=== PATIENT | male | born 1965 | race Caucasian/White ===

== ENCOUNTER 2020-11-21 19:02 | Inpatient (IN) | payer OTHER ==
[~2020-11-21] VITALS: Ht 172.7 cm; Wt 113.9 kg
--- NOTE | ~2020-11-21 | O ---
[facility] [place] [address] OPERATIVE REPORT Name: LULU CONNER Room #: 441-P ADM IN M.R.#: [id number] Admission: 11/21/20 Attend Phys: Madan Louie MD Discharge: Date of : 63 Report #: [id number] THIS REPORT FOR: cc: FAM - No family physician/PCP FAM - No family physician/PCP Hammad Andre DPM ~ LOCATION: [place]. PREOPERATIVE DIAGNOSIS: Left foot diabetic foot ulcer. POSTOPERATIVE DIAGNOSIS: Left foot diabetic foot ulcer. PROCEDURE: Left foot I and D, 5.5 cm subcutaneous and deep fascia, excisional. ANESTHESIA: General with a local block consisting of 15 mL of 0.5% ropivacaine. TOURNIQUET: None. DESCRIPTION OF PROCEDURE: The patient was transferred to the operating room and placed on the operating table in a supine position. General anesthesia was administered. Left lower extremity was prepped and draped in the usual sterile manner. Attention was directed to the left foot where an incision was made along the second interspace, carried out about 5 cm proximally and also distally just underneath the interspace. It was widened and purulence was noted right away. Culture was taken, aerobic and fungal. Then, a rongeur was used to remove any compromised tissue and any other appearing necrotic tissue to good bleeding tissue. There was some slight tracking more proximal and plantar. This was washed out and then dressed with Adaptic, fluffs, Kerlix and outer Sarkis bandage. The patient tolerated the procedure well and left the operating room in stable condition with vascular status intact. The patient will go home on my opinion tomorrow. I will consult Dr. Smith and Dr. Olmos for wound care and followup. The patient can walk with a postop shoe. By: [id number] Hammad Andre, DARLIN /nt
[~2020-11-21 19:02] MED LIST: AMOX TR-K250 MG/5 M; CATAPRES-TTS 10.1 M1 TD; CATAPRES-TTS 10.1 MG TD; DIABETA 2.5MG2.5 MG PO; GEMFIBROZIL 60600 MG PO; GLYBURIDE 2.52.5 M1 GT; HYDROCODONE BI473 ML PO; INDOMETHACIN 2525 MG PO; LISINOPRIL40 MG PO; NORCO 5-325 TA1 EACH PO; TAMSULOSIN HCL0.4 M1 PER TUBE
[2020-11-21 19:18] VITALS: BP 186/98
[2020-11-21 19:42] LABS: ABSOLUTE NEUTROPHILS 7.6 thou/uL (1.4-8.2); BASOPHILS 0.6 % (0.0-2.0); EOSINOPHILS 0.7 % (0.0-3.0); HEMATOCRIT 44.8 % (42.0-52.0); HEMOGLOBIN 15.5 gm/dL (14.0-18.0); LYMPHOCYTES 15.4 % (24.0-44.0); MCH 32.9 pg (26.0-34.0); MCHC 34.6 g/dL (28.0-37.0); MCV 95.1 fL (80.0-100.0); MONOCYTES 7.5 % (1.0-8.0); PLATELET COUNT 197 thou/uL (150-400); POLYS 75.8 % (36.0-66.0); RBC 4.71 mil/uL (4.50-6.00); RDW 12.1 % (10.5-14.5); WBC 10.1 thou/uL (4.0-11.0)
[2020-11-21 19:49] LABS: CALCIUM 9.3 mg/dL (8.5-10.1); CREATININE 1.7 mg/dL (0.7-1.3); POTASSIUM 4.3 mmol/L (3.5-5.1)
[2020-11-21 19:55] LABS: ALBUMIN 3.6 g/dL (3.4-5.0); TOTAL BILIRUBIN 0.6 mg/dL (0.2-1.0); TOTAL PROTEIN 7.8 g/dL (6.4-8.2)
[2020-11-22 00:36] VITALS: BP 156/87
--- NOTE | 2020-11-22 01:28 | NUR ---
SPO2 88-90% ON RA WHILE SLEEPING. PLACED PT ON 2L NC. NOW SPO2 >92%.
--- NOTE | 2020-11-22 04:25 | NUR ---
PT RESTED QUIETLY IN BED DURING THE NIGHT. C/O PAIN IN LEFT FOOT. PRN PAIN MEDICATION GIVEN. SEE EMAR. IVF AND ABX ADMINISTERED ORDERED. AFEBRILE. VSS. STILL IN ER, WAITING FOR INPATIENT BED.
[2020-11-22] MEDS ORDERED: METFORMIN HCL500 MG PO (04:51)
[2020-11-22 06:53] LABS: HEMATOCRIT 40.8 % (42.0-52.0); HEMOGLOBIN 13.9 gm/dL (14.0-18.0); MCH 32.5 pg (26.0-34.0); MCHC 34.1 g/dL (28.0-37.0); MCV 95.4 fL (80.0-100.0); RBC 4.28 mil/uL (4.50-6.00); WBC 8.5 thou/uL (4.0-11.0)
--- NOTE | 2020-11-22 06:57 | NUR ---
PT'S CALLED UNIT AND UPDATE WAS PROVIDED ON POC.
[2020-11-22 07:07] LABS: CALCIUM 8.4 mg/dL (8.5-10.1); CREATININE 1.3 mg/dL (0.7-1.3); POTASSIUM 4.1 mmol/L (3.5-5.1)
[2020-11-22 15:33] VITALS: BP 166/50
[2020-11-22 15:54] VITALS: BP 174/87
[2020-11-22 17:25] VITALS: BP 152/99
--- NOTE | 2020-11-22 19:41 | NUR ---
Pt transferred to unit from ED. Pt a&ox4. C/o pain in left foot. IV antibiotics infusing. Admission completed. Wound pictures in chart. Environmental Attorney visited with patient this evening. Surgery scheduled for tomorrow. Order for MRI in as well. NPO tomorrow after 0800. Report given to yaquelin RIOS.
[2020-11-22 19:50] VITALS: BP 170/116
[2020-11-22 23:17] VITALS: BP 144/89
[2020-11-23 02:20] VITALS: BP 146/95
--- NOTE | 2020-11-23 02:22 | NUR ---
ASSESSED AT START OF SHIFT. PT A&OX4 C/O FOOT PAIN PO PAIN MEDICATION GIVEN. ELEVATED LEG ON PILLOW. IV INTACT AND ABX INFUSING. PT UP AD ANDRY TO THE BATHROOM. CALL LIGHT AT REACH AND FALL EDUCATION PROVIDED. PT TO BE NPO AT 0800. WILL CONT TO MONITOR.
[2020-11-23 07:09] LABS: GLYCOHEMOGLOBIN (HGB A1C) 12.8 % (4.8-5.6)
--- NOTE | 2020-11-23 08:12 | NUR ---
Assess due to pt with diabetic foot wound and npo today for I/D. BG poorly controlled, A1C 12.8. Ate 100% of dinner last evening. Will follow up at later date following surgery to determine if pt has any nutrition education needs. Low nutrition risk
[2020-11-23 08:25] VITALS: BP 168/107
[2020-11-23 09:19] VITALS: BP 155/705
--- NOTE | 2020-11-23 10:02 | NUR ---
ASSUMED PT CARE THIS AM. PT IS ALERT & ORIENTED X4. PT REMOVED IV ON R AC. PT HAS IV SITE ON L HAND. PT IS UP AD ANDRY AND HAS BEEN NPO SINCE 0800 THIS AM. PT HAD MRI THIS AM. PT IS ON ROOM AIR. PT IS ACCUCHECK ACHS. PT AT THE BEDSIDE. WILL HAVE I&D THIS AFTERNOON. WILL CONTINUE TO MONITOR PT. FOLLOW POC.
[2020-11-23 11:20] LABS: HEMATOCRIT 42.5 % (42.0-52.0); HEMOGLOBIN 14.8 gm/dL (14.0-18.0); MCHC 34.9 g/dL (28.0-37.0); MCV 94.5 fL (80.0-100.0); RBC 4.5 mil/uL (4.50-6.00); WBC 6.9 thou/uL (4.0-11.0)
[2020-11-23 11:40] LABS: CALCIUM 8.6 mg/dL (8.5-10.1); CREATININE 1.2 mg/dL (0.7-1.3); POTASSIUM 4.2 mmol/L (3.5-5.1)
--- NOTE | 2020-11-23 13:01 | NUR ---
ASSESSMENT: CM REVIEWED CHART AND SPOKE WITH PATIENT AT THE BEDSIDE. PT APPEARS ALERT AND ORIENTED X4. PT WAS ADMITTED DUE TO CONCERNS FOR LEFT FOOT ABSESS AND REPORTS INCREASED PAIN. PT HAS HX OF DIABETES. CM MET WITH PATIENT AND HE IS NOT VERY FORTHCOMING WITH INFORMATION. CM INTRODUCED ROLE AND CM IS AVAILABLE TO HELP WITH ANY NEEDS PATIENT MAY HAVE AT DISCHARGE. PT STATED HE WILL NOT NEED ANYTHING FROM THIS HOSPITAL WHEN HE LEAVES. PT REPORTS HE IS INDEPENDENT AND LIVES WITH HIS AND CHILDREN. PT STATES HE WILL NEED NOTHING FROM THIS AGAIN. PT IS HAVING MRI AND IS TO HAVE I AND D OF HIS FOOT TODAY. PT IS CURRENTLY ON IV ANBX. CM WILL CONTINUE TO FOLLOW TO ASSIST NEEDED.
[2020-11-23 19:30] VITALS: BP 140/83
[2020-11-23 20:31] VITALS: BP 144/85
--- NOTE | 2020-11-24 00:08 | NUR ---
PT ARRIVED FROM SURGERY AT SHIFT CHANGE A&OX4. REQUESTED FOR SOMETHING TO EAT. DENIES NAUSEA/ VOMITING. NIGHT SNACKS PROVIDED AND PT JOÃO IT WELL. ON 2L OF O2. BSG CHECKED AND INSULIN GIVEN. LEFT FOOT DRESSING SLIGHT DRAINAGE NOTED FROM SURGERY, ICE PACK PLACED FOR COMFORT. WILL CONT TO MONITOR.
[2020-11-24 04:41] VITALS: BP 145/84
[2020-11-24 08:20] VITALS: BP 149/93
--- NOTE | 2020-11-24 10:20 | NUR ---
Assumed care of pt at 0700. Pt a&ox4. Dressing c/d/i. IV antibiotics infusing. Pt states if he is not discharged today by 1200, he will sign AMA paperwork and leave. Provider aware. Call light within reach. Will continue to monitor.
[2020-11-24] MEDS ORDERED: ZYVOX600 MG PO (11:03)
[2020-11-24 11:13] VITALS: BP 149/93
--- NOTE | 2020-11-24 12:40 | NUR ---
DISCHARGE NOTE: WESTLEY reviewed chart and spoke with nursing and attending physician. Pt is medically stable for discharge home today. No discharge needs identified. Pt's family provided transportation home. Case closed.
== END 2020-11-24 12:06 | disposition home or self-care (01) | DRG 622 ==
LOC: ER 19:02 → 4S 20:54 → EROBS 20:54 → 4S 11-22 16:03
PROVIDERS: Nurse Practitioner; Nurse Practitioner Family; ADMIT Hospitalist; ATTEND Hospitalist
PROC: 0JBR0ZZ Excision of Left Foot Subcutaneous Tissue and Fascia, Open Approach (ICD-10-PCS; principal; 2020-11-23)
DX: E11.621 Type 2 diabetes mellitus with foot ulcer (principal); R65.11 Systemic inflammatory response syndrome (SIRS) of non-infectious origin with acute organ dysfunction; L03.116 Cellulitis of left lower limb; L02.612 Cutaneous abscess of left foot; N17.9 Acute kidney failure, unspecified; Z20.822 Contact with and (suspected) exposure to COVID-19; I10 Essential (primary) hypertension; E78.00 Pure hypercholesterolemia, unspecified; S91.302A Unspecified open wound, left foot, initial encounter; E11.9 Type 2 diabetes mellitus without complications; E78.5 Hyperlipidemia, unspecified; K08.409 Partial loss of teeth, unspecified cause, unspecified class; Z79.899 Other long term (current) drug therapy; X58.XXXA Exposure to other specified factors, initial encounter; Y93.89 Activity, other specified; Y92.89 Other specified places as the place of occurrence of the external cause; Y99.8 Other external cause status
CPT/HCPCS: 10100; 50010; 50101; 50386; 53078; 57092; 57095; 62110; 62900; 70005